=== PATIENT | female | born 1990 | race Caucasian/White ===

== ENCOUNTER → 2021-06-22 | Outpatient (CLI) | payer SELFPAY ==
--- NOTE | 2021-06-22 18:18 | Diagnostic Imaging Report ---
INDICATION: Back pain, radiculopathy. COMPARISON: None. EXAMINATION: Three views of the lumbar column. FINDINGS: Normal alignment. There is no subluxation, fracture or degeneration. No osseous lesion. IMPRESSION: Negative lumbar spine. Dictated by: Dictated on workstation # [id number]
== END ==
LOC: RAD FS 14:58
PROVIDERS: ATTEND Nurse Practitioner Family
DX: M54.16 Radiculopathy, lumbar region (principal)
CPT/HCPCS: 72100

== ENCOUNTER 2022-03-25 08:40 | Emergency (ER) | payer OTHER ==
[~2022-03-25] VITALS: Ht 170 cm; Wt 76.0 kg
--- NOTE | 2022-03-25 08:45 | ED General ---
General Stated Complaint: WEAKNESS; VOMITING History of Present Illness Date Seen by Provider: Mar 25, 2022 Time Seen by Provider: 08:45 Initial Comments 32-year-old female is here with complaints of chills, nausea and vomiting, and malaise which has been slowly increasing in intensity over the past 6 days or so. Patient denies any known contact with COVID, chest pain, shortness of breath, diarrhea, headache. Patient is unsure if she has dysuria but feels like she may have some burning when she urinates occasionally. Allergies and Home Medications Allergies Coded Allergies: No Known Drug Allergies (Unverified , 03/25/22) Patient Home Medication List Home Medication List Reviewed: Yes Review of Systems Review of Systems Constitutional: chills, malaise EENTM: no symptoms reported Respiratory: no symptoms reported Cardiovascular: no symptoms reported Gastrointestinal: loss of appetite, nausea, vomiting Genitourinary: dysuria Musculoskeletal: no symptoms reported Skin: no symptoms reported Psychiatric/Neurological: No Symptoms Reported Hematologic/Lymphatic: No Symptoms Reported Physical Exam Vital Signs Vital Signs - First Documented 03/25/22 09:43 Temp 36.8 Pulse 93 Resp 16 B/P (MAP) 136/76 (96) Pulse Ox 99 O2 Delivery Room Air Capillary Refill : Height, Weight, BMI Height: '" Weight: lbs. oz. kg; BMI Method: General Appearance: No Apparent Distress, Anxious HEENT: PERRL/EOMI Neck: Full Range of Motion, Normal Inspection, Non Tender, Supple Respiratory: Chest Non Tender, Lungs Clear, Normal Breath Sounds, No Accessory Muscle Use Cardiovascular: Regular Rate, Rhythm Gastrointestinal: Normal Bowel Sounds, Non Tender, Soft Back: Normal Inspection, No CVA Tenderness, No Vertebral Tenderness Neurologic/Psychiatric: Alert, Oriented x3, No Motor/Sensory Deficits Skin: Normal Color Focused Exam Lactate Level 03/25/22 09:59: Lactic Acid Level 1.02 Lactic Acid Level Laboratory Tests Test 03/25/22 09:59 Lactic Acid Level 1.02 MMOL/L (0.50-2.00) Progress/Results/Core Measures Suspected Sepsis SIRS Temperature: Pulse: Respiratory Rate: Laboratory Tests 03/25/22 08:58: White Blood Count 6.2 Blood Pressure / Mean: 03/25/22 09:59: Lactic Acid Level 1.02 Laboratory Tests 03/25/22 08:58: Creatinine 0.71, Platelet Count 208, Total Bilirubin 0.6 Results/Orders Lab Results Laboratory Tests Test 03/25/22 08:58 03/25/22 09:59 03/25/22 10:02 03/25/22 10:45 Range/Units White Blood Count 6.2 4.3-11.0 10^3/uL Red Blood Count 4.30 3.80-5.11 10^6/uL Hemoglobin 13.9 11.5-16.0 g/dL Hematocrit 40 35-52 % Mean Corpuscular Volume 94 80-99 fL Mean Corpuscular Hemoglobin 32 25-34 pg Mean Corpuscular Hemoglobin Concent 35 32-36 g/dL Red Cell Distribution Width 13.0 10.0-14.5 % Platelet Count 208 130-400 10^3/uL Mean Platelet Volume 10.3 9.0-12.2 fL Immature Granulocyte % (Auto) 0 % Neutrophils (%) (Auto) 65 42-75 % Lymphocytes (%) (Auto) 25 12-44 % Monocytes (%) (Auto) 8 0-12 % Eosinophils (%) (Auto) 1 0-10 % Basophils (%) (Auto) 1 0-10 % Neutrophils # (Auto) 4.1 1.8-7.8 10^3/uL Lymphocytes # (Auto) 1.6 1.0-4.0 10^3/uL Monocytes # (Auto) 0.5 0.0-1.0 10^3/uL Eosinophils # (Auto) 0.1 0.0-0.3 10^3/uL Basophils # (Auto) 0.1 0.0-0.1 10^3/uL Immature Granulocyte # (Auto) 0.0 0.0-0.1 10^3/uL Sodium Level 140 135-145 MMOL/L Potassium Level 3.1 L 3.6-5.0 MMOL/L Chloride Level 104 98-107 MMOL/L Carbon Dioxide Level 26 21-32 MMOL/L Anion Gap 10 5-14 MMOL/L Blood Urea Nitrogen 10 7-18 MG/DL Creatinine 0.71 0.60-1.30 MG/DL Estimat Glomerular Filtration Rate 115 BUN/Creatinine Ratio 14 Glucose Level 125 H 70-105 MG/DL Calcium Level 9.3 8.5-10.1 MG/DL Corrected Calcium 9.0 8.5-10.1 MG/DL Magnesium Level 1.6 1.6-2.4 MG/DL Total Bilirubin 0.6 0.1-1.0 MG/DL Aspartate Amino Transf (AST/SGOT) 21 5-34 U/L Alanine Aminotransferase (ALT/SGPT) 17 0-55 U/L Alkaline Phosphatase 81 40-136 U/L Total Protein 7.4 6.4-8.2 GM/DL Albumin 4.4 3.2-4.5 GM/DL Lipase 24 8-78 U/L Serum Alcohol < 10 <10 MG/DL Lactic Acid Level 1.02 0.50-2.00 MMOL/L Influenza Type A (RT-PCR) Not Detected Not Detecte Influenza Type B (RT-PCR) Not Detected Not Detecte SARS-CoV-2 RNA (RT-PCR) Not Detected Not Detecte Urine Color RED H Urine Clarity CLOUDY Urine pH 6.0 5-9 Urine Specific Bee >=1.030 1.016-1.022 Urine Protein 2+ H NEGATIVE Urine Glucose (UA) NEGATIVE NEGATIVE Urine Ketones TRACE H NEGATIVE Urine Nitrite POSITIVE H NEGATIVE Urine Bilirubin NEGATIVE NEGATIVE Urine Urobilinogen 1.0 < = 1.0 MG/DL Urine Leukocyte Esterase NEGATIVE NEGATIVE Urine RBC (Auto) 3+ H NEGATIVE Urine RBC >100 H /HPF Urine WBC 5-10 H /HPF Urine Squamous Epithelial Cells 2-5 /HPF Urine Crystals NONE /LPF Urine Bacteria FEW H /HPF Urine Casts NONE /LPF Urine Mucus SMALL H /LPF Urine Culture Indicated YES Urine Test NEGATIVE NEGATIVE Urine Opiates Screen NEGATIVE NEGATIVE Urine Oxycodone Screen NEGATIVE NEGATIVE Urine Methadone Screen NEGATIVE NEGATIVE Urine Propoxyphene Screen NEGATIVE NEGATIVE Urine Barbiturates Screen NEGATIVE NEGATIVE Ur Tricyclic Antidepressants Screen NEGATIVE NEGATIVE Urine Phencyclidine Screen NEGATIVE NEGATIVE Urine Amphetamines Screen NEGATIVE NEGATIVE Urine Methamphetamines Screen NEGATIVE NEGATIVE Urine Benzodiazepines Screen POSITIVE H NEGATIVE Urine Cocaine Screen NEGATIVE NEGATIVE Urine Cannabinoids Screen POSITIVE H NEGATIVE My Orders Orders - LUIZA MOHAN MD Alcohol (03/25/22 09:41) Cbc With Automated Diff (03/25/22 09:41) Comprehensive Metabolic Panel (03/25/22 09:41) Drug Screen Stat (Urine) (03/25/22 09:41) Hcg,Qualitative Urine (03/25/22 09:41) Lactic Acid Analyzer (03/25/22 09:41) Lipase (03/25/22 09:41) Magnesium (03/25/22 09:41) Ua Culture If Indicated (03/25/22 09:41) Chest 1 View Ap/Pa Only (03/25/22 09:41) Ct Abdomen/Pelvis Wo (03/25/22 09:41) Ondansetron Injection (Zofran Injectio (03/25/22 09:45) Ed Iv/Invasive Line Start (03/25/22 09:42) Ns Iv 1000 Ml (Sodium Chloride 0.9%) (03/25/22 09:45) Covid 19 Inhouse Test (03/25/22 09:46) Influenza A And B By Pcr (03/25/22 09:46) Potassium Chloride (Tablet) (K Dur Table (03/25/22 10:30) Urine Culture (03/25/22 10:45) Medications Given in ED Current Medications Medications Dose Ordered Sig/Leah Route Start Time Stop Time Status Last Admin Dose Admin Ondansetron HCl 4 mg ONCE ONCE IVP 03/25/22 09:45 03/25/22 09:46 DC 03/25/22 09:59 4 MG Potassium Chloride 40 meq ONCE ONCE PO 03/25/22 10:30 03/25/22 10:31 DC 03/25/22 10:46 40 MEQ Vital Signs/I&O 03/25/22 09:43 Temp 36.8 Pulse 93 Resp 16 B/P (MAP) 136/76 (96) Pulse Ox 99 O2 Delivery Room Air Capillary Refill : Progress Note : Progress Note 1. UTI: - CT ABD unremarkable - CXR normal - COVID test negative - UA is positive for nitrates, WBC, RBC, bacteria -Normal saline IVF bolus stat -Zofran IV stat - Nitrofurantoin 100 mg stat in ER and prescription for 7 days twice daily. Adv ised to keep adequately hydrated. 2. DEHYDRATION / HYPOKALEMIA/ MARIJUANA ABUSE: - s. K is 3.1, repleted with oral potassium 40mEq in ER. Prescription of oral potassium for 2 days. - Zofran prescription - Advised to stop using marijuana as that can trigger nausea and vomiting and dehydration a well - Follow up with PCP for repeat labs in 3 to 5 days -The patient was seen in the ED, and treated appropriately to presentation at a specific point in time. Patient is informed that there is a possibility that disease and illness can evolve and change in acuity rapidly or slowly after patient is discharged from the ER. Precautionary advice given to the patient for immediate return to ER if symptoms worsen or do not resolve, and to seek emerge ncy care sooner rather than later. Pt also advised on the importance of PCP follow up and compliance with management and follow up plan with PCP and/or specialist, as this is part of the management plan. Pt verbally expressed understanding. Diagnostic Imaging Diagonstic Imaging: Xray, CT Plain Films/CT/US/NM/MRI: chest, abdomen Comments [facility], [place] NAME: SHAWN GONZALEZ [facility] REC#: [id number] PT STATUS: REG ER : 1990 PHYSICIAN: LUIZA MOHAN MD ADMIT DATE: 03/25/22/ER FS Signed Date of Exam:03/25/22 CHEST 1 VIEW AP/PA ONLY INDICATION: Shortness of breath COMPARISON: None available TECHNIQUE: Single radiograph of the chest dated 03/25/2022. FINDINGS: The cardiac silhouette is within normal limits in size. No significant pulmonary vascular congestion. The lungs are clear without focal pulmonary opacity. No pleural effusion. No pneumothorax. No acute osseous abnormality. IMPRESSION: No acute cardiopulmonary abnormality. Dictated by: Dictated on workstation # [id number] Dict: 03/25/22 1009 Trans: 03/25/22 1036 CV [id number] Interpreted by: DAISHA MCGARRY MD Electronically signed by: DAISHA MCGARRY MD 03/25/22 1036 [facility], [place] NAME: SHAWN GONZALEZ [facility] REC#: [id number] PT STATUS: REG ER : 1990 PHYSICIAN: LUIZA MOHAN MD ADMIT DATE: 03/25/22/ER FS Draft Date of Exam:03/25/22 CT ABDOMEN/PELVIS WO PROCEDURE: CT abdomen and pelvis without contrast. TECHNIQUE: Multiple contiguous axial images were obtained through the abdomen and pelvis without the use of intravenous contrast. Auto Exposure Controls were utilized during the CT exam to meet ALARA standards for radiation dose reduction. INDICATION: Nausea and vomiting. No prior studies are available for comparison. FINDINGS: The lung bases are clear. The liver and gallbladder are unremarkable. No biliary ductal dilatation is seen. Pancreas and spleen are unremarkable. No adrenal mass is detected. No definite renal calculi are identified. No ureteral calculi or hydronephrosis is seen. Aorta is nonaneurysmal. The small and large bowel loops are normal caliber. No obstruction is identified. No inflammatory changes are seen. There is no free fluid or fluid collection. The uterus and bladder are unremarkable. IMPRESSION: Unremarkable noncontrast CT of the abdomen and pelvis. No acute feature is detected. Dictated on workstation # [id number] Dict: 03/25/22 1136 Trans: 03/25/22 1145 [id number] Interpreted by: JERARDO CHÁVEZ MD Electronically signed by: Departure Impression Primary Impression: Acute cystitis with hematuria Additional Impressions: Dehydration Hypokalemia Disposition: HOME, SELF-CARE Condition: Improved Departure-Patient Inst. Referrals: ROSALVA CASEY APRN (PCP) Primary Care Physician [facility] (Family) Primary Care Physician Patient Instructions: Urinary Tract Infections in Adults, Dehydration, Adult ED, Hypokalemia (DC) Add. Discharge Instructions: - Nitrofurantoin 100 mg stat in ER and prescription for 7 days twice daily. Advised to keep adequately hydrated. - Prescription of oral potassium for 2 days. - Zofran prescription - Advised to stop using marijuana as that can trigger nausea and vomiting and dehydration a well - Follow up with PCP for repeat labs in 3 to 5 days Scripts Nitrofurantoin Macrocrystal (Nitrofurantoin) 100 Mg Capsule 100 MG PO BID for 7 Days, #14 CAP Prov: LUIZA MOHAN MD 03/25/22 Work/School Note: Work Release Form Date Seen in the Emergency Department: Mar 25, 2022 Return to Work: Mar 27, 2022 LUIZA MOHAN MD Mar 25, 2022 08:45
[2022-03-25 09:43] VITALS: BP 136/76
[2022-03-25] MEDS ORDERED: NS IV 1000 ML 1,000 ML IV SCH (09:45)
[2022-03-25] MEDS ORDERED: ONDANSETRON 4 MG/2 ML (SDV) Z0FRAN IVP ONE (09:45)
[2022-03-25 09:47] LABS: BASOPHILS # (AUTO) 0.1 10^3/uL (0.0-0.1); BASOPHILS % (AUTO) 1 % (0-10); EOSINOPHILS # (AUTO) 0.1 10^3/uL (0.0-0.3); EOSINOPHILS % (AUTO) 1 % (0-10); HEMATOCRIT 40 % (35-52); HEMOGLOBIN 13.9 g/dL (11.5-16.0); LYMPHOCYTES # (AUTO) 1.6 10^3/uL (1.0-4.0); LYMPHOCYTES % (AUTO) 25 % (12-44); MEAN CORPUSCULAR HEMOGLOBIN 32 pg (25-34); MEAN CORPUSCULAR HGB CONC 35 g/dL (32-36); MEAN CORPUSCULAR VOLUME 94 fL (80-99); MEAN PLATELET VOLUME 10.3 fL (9.0-12.2); MONOCYTES # (AUTO) 0.5 10^3/uL (0.0-1.0); MONOCYTES % (AUTO) 8 % (0-12); NEUTROPHILS # (AUTO) 4.1 10^3/uL (1.8-7.8); NEUTROPHILS % (AUTO) 65 % (42-75); PLATELET COUNT 208 10^3/uL (130-400); WHITE BLOOD COUNT 6.2 10^3/uL (4.3-11.0)
[2022-03-25 10:11] LABS: ALANINE AMINOTRANSFERASE 17 U/L (0-55); ALKALINE PHOSPHATASE 81 U/L (40-136); BILIRUBIN,TOTAL 0.6 MG/DL (0.1-1.0); BUN/CREATININE RATIO 14; CALCIUM 9.3 MG/DL (8.5-10.1); CARBON DIOXIDE 26 MMOL/L (21-32); CHLORIDE 104 MMOL/L (98-107); CREATININE SERUM 0.71 MG/DL (0.60-1.30); GFR ESTIMATED 115; GLUCOSE 125 MG/DL (70-105); MAGNESIUM 1.6 MG/DL (1.6-2.4); POTASSIUM 3.1 MMOL/L (3.6-5.0); SODIUM 140 MMOL/L (135-145)
--- NOTE | 2022-03-25 10:11 | Diagnostic Imaging Report ---
INDICATION: Shortness of breath COMPARISON: None available TECHNIQUE: Single radiograph of the chest dated 03/25/2022. FINDINGS: The cardiac silhouette is within normal limits in size. No significant pulmonary vascular congestion. The lungs are clear without focal pulmonary opacity. No pleural effusion. No pneumothorax. No acute osseous abnormality. IMPRESSION: No acute cardiopulmonary abnormality. Dictated by: Dictated on workstation # [id number]
[2022-03-25 10:12] LABS: ALBUMIN 4.4 GM/DL (3.2-4.5); LIPASE 24 U/L (8-78); TOTAL PROTEIN 7.4 GM/DL (6.4-8.2)
[2022-03-25] MEDS ORDERED: KCL 20 MEQ TAB (K-DUR) PO ONE (10:30)
[2022-03-25 10:52] LABS: BILIRUBIN,URINE NEGATIVE (NEGATIVE); COLOR,URINE RED; GLUCOSE, URINE (UA) NEGATIVE (NEGATIVE); KETONES,URINE TRACE (NEGATIVE); LEUKOCYTE ESTERASE ,URINE NEGATIVE (NEGATIVE); NITRITE,URINE POSITIVE (NEGATIVE); PROTEIN,URINE 2+ (NEGATIVE)
[2022-03-25 11:04] LABS: BACTERIA,URINE FEW /HPF; CLARITY,URINE CLOUDY; RBC,URINE >100 /HPF
[2022-03-25 11:08] LABS: HCG,QUALITATIVE URINE NEGATIVE (NEGATIVE)
[2022-03-25 11:30] LABS: AMPHETAMINE SCREEN, URINE NEGATIVE (NEGATIVE); BARBITURATE SCREEN URINE NEGATIVE (NEGATIVE); BENZODIAZEPINES SCREEN URINE POSITIVE (NEGATIVE); CANNABINOID SCREEN, URINE POSITIVE (NEGATIVE); COCAINE SCREEN URINE NEGATIVE (NEGATIVE); METHADONE STAT NEGATIVE (NEGATIVE); OPIATE SCREEN URINE NEGATIVE (NEGATIVE); OXYCODONE STAT NEGATIVE (NEGATIVE); PROPOXYPHENE STAT NEGATIVE (NEGATIVE); TRICYCLIC ANTIDEPRESSANTS SCRE NEGATIVE (NEGATIVE)
--- NOTE | 2022-03-25 11:45 | Diagnostic Imaging Report ---
PROCEDURE: CT abdomen and pelvis without contrast. TECHNIQUE: Multiple contiguous axial images were obtained through the abdomen and pelvis without the use of intravenous contrast. Auto Exposure Controls were utilized during the CT exam to meet ALARA standards for radiation dose reduction. INDICATION: Nausea and vomiting. No prior studies are available for comparison. FINDINGS: The lung bases are clear. The liver and gallbladder are unremarkable. No biliary ductal dilatation is seen. Pancreas and spleen are unremarkable. No adrenal mass is detected. No definite renal calculi are identified. No ureteral calculi or hydronephrosis is seen. Aorta is nonaneurysmal. The small and large bowel loops are normal caliber. No obstruction is identified. No inflammatory changes are seen. There is no free fluid or fluid collection. The uterus and bladder are unremarkable. IMPRESSION: Unremarkable noncontrast CT of the abdomen and pelvis. No acute feature is detected. Dictated by: Dictated on workstation # [id number]
[2022-03-25] MEDS ORDERED: NITR100C PO (12:55)
[2022-03-25] MEDS ORDERED: NITROFURANTOIN 100 MG (MACROBID) CAPSULE PO ONE (13:00)
== END 2022-03-25 13:00 | disposition home or self-care (01) ==
LOC: EDUNIT# 08:40 → ER FS 08:42
DX: N30.01 Acute cystitis with hematuria (principal); E86.0 Dehydration; E87.6 Hypokalemia; Z20.822 Contact with and (suspected) exposure to COVID-19
CPT/HCPCS: 36415; 71045; 74176; 80053; 80306; 81000; 83605; 83690; 83735; 84703; 85025; 87088; 87636; G0480; 80320

== ENCOUNTER 2023-05-21 12:52 | Emergency (ER) | payer OTHER ==
[~2023-05-21] VITALS: Ht 162 cm; Wt 83.0 kg
[~2023-05-21 12:52] MED LIST: NITR100C PO
--- NOTE | 2023-05-21 13:10 | ED Psychosocial ---
General Stated Complaint: PSYCH EVAL Source: patient History of Present Illness Date Seen by Provider: May 21, 2023 Time Seen by Provider: 12:56 Initial Comments 33-year-old female presenting from [facility] with complaints of having thoughts of harming herself or killing herself. She states that she has had an increase in these thoughts in the last month. 2 to 3 days ago she has not used a sawblade to try and cut on her left arm. She has a superficial abrasion on the arm now. She states that she does use marijuana regularly. She reports having a history of problems with alcohol but does not use alcohol very much now. She reports within the last week she had used methamphetamines. She also states that this is a rare event and that she does not use methamphetamines all the time. She is taking Prozac and clonazepam. She has not had a counselor or therapist that she speaks with for over a year. She last had seen someone through the [facility] clinic. She expresses concern for her safety and desire for inpatient placement. Severity: moderate Associated Symptoms: suicidal ideation Allergies and Home Medications Allergies Coded Allergies: No Known Drug Allergies (Unverified , 03/25/22) Patient Home Medication List Home Medication List Reviewed: Yes Clonazepam (Clonazepam) 1 Mg Tablet, (Reported) Entered as Reported by: JAMIE JOY on 05/21/231312 Last Action: New Order Fluoxetine HCl (Fluoxetine HCl) 40 Mg Capsule, (Reported) Entered as Reported by: JAMIE JOY on 05/21/231312 Last Action: New Order Discontinued Medications Nitrofurantoin Macrocrystal (Nitrofurantoin) 100 Mg Capsule, 100 MG PO BID Discontinued Reason: No Longer Taking Prescribed by: LUIZA MOHAN MD on 03/25/22 1255 Last Action: Discontinued Review of Systems Constitutional: No chills, No fever EENTM: no symptoms reported Respiratory: no symptoms reported Cardiovascular: no symptoms reported Gastrointestinal: no symptoms reported Genitourinary: no symptoms reported Musculoskeletal: no symptoms reported Skin: see HPI (superficial abrasion to left forearm) Psychiatric/Neurological: See HPI, Depressed, Emotional Problems Past Buqpfwu-Uqvucg-Izjcon Hx Patient Social History Substance use?: Yes Substance type: Methamphetamine, Marijuana Alcohol Use?: Yes Alcohol Frequency: Once in a while Past Medical History Surgery/Hospitalization HX: Depression, Anxiety Physical Exam Vital Signs - First Documented 05/21/23 12:55 Temp 36.4 Pulse 101 Resp 16 B/P (MAP) 124/90 (101) Pulse Ox 100 O2 Delivery Room Air Capillary Refill : Height, Weight, BMI Height: '" Weight: lbs. oz. kg; 26.00 BMI Method: General Appearance: WD/WN, no apparent distress HEENT: PERRL/EOMI, pharynx normal Neck: non-tender, full range of motion, supple, normal inspection Respiratory: chest non-tender, lungs clear, normal breath sounds, no respiratory distress, no accessory muscle use Cardiovascular: normal peripheral pulses, regular rate, rhythm Gastrointestinal: normal bowel sounds, non tender, soft, no pulsatile mass Extremities: normal range of motion, non-tender, normal capillary refill Neurologic/Psychiatric: alert, oriented x 3 Appearance/Memory: appropriate appearance, neat Behavior/Eye Contact: cooperative, avoids eye contact, increased rate of speech Thoughts/Hallucinations: no apparent hallucination Skin: normal color, warm/dry, other (superficial abrasion to left forearm) BARS Assessment: 4-Calm/No Agitation Progress/Results/Core Measures Results/Orders Lab Results Laboratory Tests Test 05/21/23 13:07 05/21/23 14:20 Range/Units White Blood Count 8.6 4.3-11.0 10^3/uL Red Blood Count 4.51 3.80-5.11 10^6/uL Hemoglobin 14.1 11.5-16.0 g/dL Hematocrit 41 35-52 % Mean Corpuscular Volume 91 80-99 fL Mean Corpuscular Hemoglobin 31 25-34 pg Mean Corpuscular Hemoglobin Concent 34 32-36 g/dL Red Cell Distribution Width 12.2 10.0-14.5 % Platelet Count 243 130-400 10^3/uL Mean Platelet Volume 10.1 9.0-12.2 fL Immature Granulocyte % (Auto) 0 % Neutrophils (%) (Auto) 67 42-75 % Lymphocytes (%) (Auto) 25 12-44 % Monocytes (%) (Auto) 6 0-12 % Eosinophils (%) (Auto) 1 0-10 % Basophils (%) (Auto) 1 0-10 % Neutrophils # (Auto) 5.8 1.8-7.8 10^3/uL Lymphocytes # (Auto) 2.2 1.0-4.0 10^3/uL Monocytes # (Auto) 0.5 0.0-1.0 10^3/uL Eosinophils # (Auto) 0.1 0.0-0.3 10^3/uL Basophils # (Auto) 0.1 0.0-0.1 10^3/uL Immature Granulocyte # (Auto) 0.0 0.0-0.1 10^3/uL Sodium Level 136 135-145 MMOL/L Potassium Level 3.9 3.6-5.0 MMOL/L Chloride Level 103 98-107 MMOL/L Carbon Dioxide Level 18 L 21-32 MMOL/L Anion Gap 15 H 5-14 MMOL/L Blood Urea Nitrogen 16 7-18 MG/DL Creatinine 0.80 0.60-1.30 MG/DL Estimat Glomerular Filtration Rate 99 BUN/Creatinine Ratio 20 Glucose Level 101 70-105 MG/DL Calcium Level 9.4 8.5-10.1 MG/DL Corrected Calcium 9.3 8.5-10.1 MG/DL Total Bilirubin 1.3 H 0.1-1.0 MG/DL Aspartate Amino Transf (AST/SGOT) 27 5-34 U/L Alanine Aminotransferase (ALT/SGPT) 24 0-55 U/L Alkaline Phosphatase 92 40-136 U/L Total Protein 7.7 6.4-8.2 GM/DL Albumin 4.1 3.2-4.5 GM/DL Salicylates Level < 0.3 L 5.0-20.0 MG/DL Acetaminophen Level < 10 L 10-30 UG/ML Serum Alcohol 16 H <10 MG/DL SARS-CoV-2 RNA (RT-PCR) Not Detected Not Detecte Urine Color ORANGE Urine Clarity CLEAR Urine pH 5.5 5-9 Urine Specific [place] >=1.030 1.016-1.022 Urine Protein TRACE H NEGATIVE Urine Glucose (UA) NEGATIVE NEGATIVE Urine Ketones 1+ H NEGATIVE Urine Nitrite NEGATIVE NEGATIVE Urine Bilirubin 2+ H NEGATIVE Urine Urobilinogen 4.0 < = 1.0 MG/DL Urine Leukocyte Esterase NEGATIVE NEGATIVE Urine RBC (Auto) NEGATIVE NEGATIVE Urine RBC RARE /HPF Urine WBC 0-2 /HPF Urine Squamous Epithelial Cells 2-5 /HPF Urine Crystals NONE /LPF Urine Bacteria FEW H /HPF Urine Casts NONE /LPF Urine Mucus MODERATE H /LPF Urine Culture Indicated NO Urine Opiates Screen NEGATIVE NEGATIVE Urine Oxycodone Screen NEGATIVE NEGATIVE Urine Methadone Screen NEGATIVE NEGATIVE Urine Propoxyphene Screen NEGATIVE NEGATIVE Urine Barbiturates Screen NEGATIVE NEGATIVE Ur Tricyclic Antidepressants Screen NEGATIVE NEGATIVE Urine Phencyclidine Screen NEGATIVE NEGATIVE Urine Amphetamines Screen POSITIVE H NEGATIVE Urine Methamphetamines Screen POSITIVE H NEGATIVE Urine Benzodiazepines Screen POSITIVE H NEGATIVE Urine Cocaine Screen NEGATIVE NEGATIVE Urine Cannabinoids Screen POSITIVE H NEGATIVE My Orders Orders - JOHN MENDOZA MD Ua Culture If Indicated (05/21/23 12:54) Cbc With Automated Diff (05/21/23 12:54) Comprehensive Metabolic Panel (05/21/23 12:54) Alcohol (05/21/23 12:54) Drug Screen Stat (Urine) (05/21/23 12:54) Acetaminophen (05/21/23 12:54) Salicylate (05/21/23 12:54) Ekg Tracing (05/21/23 12:54) Bh Status Checks/Observation O Q15M (05/21/23 12:54) Urine Bedside (05/21/23 12:54) Covid 19 Inhouse Test (05/21/23 12:54) Straight Cath For Spec.-Adult (05/21/23 14:18) Vital Signs/I&O 05/21/23 05/21/23 12:55 15:15 Temp 36.4 36.4 Pulse 101 101 Resp 16 16 B/P (MAP) 124/90 (101) 124/90 Pulse Ox 100 100 O2 Delivery Room Air Room Air Progress Progress Note #1: Progress Note Differential diagnosis includes depression, anxiety, suicidal ideation, substance abuse. Obtain labs for complete blood count, comprehensive metabolic profile, acetaminophen, salicylate, alcohol level. Urinalysis and urine drug screen. Bedside urine test. COVID swab. Electrocardiogram to look for QT prolongation in case she requires medication. Patient placed in secure environment under observation awaiting lab results to medically clear her so that mental health could perform a screening. Progress Note #2: Time: 13:41 Progress Note Complete blood count shows normal white blood cell count of 8.6 and hemoglobin of 14.1. Comprehensive metabolic profile did not show any acute significant electrolyte abnormalities. Aspirin and acetaminophen levels are both negative. Alcohol level was 16. COVID swab was negative. Patient is still trying to provide a urine specimen. Overall she is medically stable and clear in my opinion she could be screened by mental health. 1350 [facility] called back to say that they would not screen the patient for mental health until she has urine tests back. Patient has tried multiple times but still not been able to produce any urine. Having her continue to drink water to try and help her be able to urinate. 1411 Patient still unable to urinate so offered to have the nurse do a straight cath to get enough urine for testing. 1420 Urine obtained by straight cath was dark and appeared concentrated so will have her drink more water and try to stay better hydrated. Urine test is negative. Progress Note #3: Time: 14:37 Progress Note Urine drug screen came back positive for marijuana that she admits to using as well as benzodiazepines which she is prescribed. In addition amphetamines and methamphetamines did show positive on the drug screen. 1448 UA shows concentration with specific gravity >1.030. She has 1 + Ketones and 2 + Bilirubin to go with dehydration as well. No LE or Nitrites or WBC to indicate infection. Will check again with [facility] to see if they will screen the patient now. Progress Note #4: Time: 15:05 Progress Note I spoke with Kurt at [facility] and she advised that with the patient having Methamphetamines in her system the patient will have to wait 12 hours before they will screen her. This is based off of the time that she contacted them at 1237 this afternoon. I reviewed with the patient that it would be almost 1 AM before they could screen her. She was advised that we would make her comfortable moderate try and rest here and plan on doing the screening in the middle of the night. However the patient is here voluntarily and she stated that she felt more calm now. She did not want to stay till 1 AM and wanted instead to go home with her mother. She will be given information for [facility] and phone number to call if she had a crisis or suicidal thoughts before she could be reevaluated. She plans to follow-up with [facility] for outpatient visits. Stressed importance of returning if she has increasing suicidal thoughts. Initial ECG Impression Date: May 21, 2023 Initial ECG Impression Time: 13:11 Initial ECG Rate: 68 Initial ECG Rhythm: Normal Sinus Initial ECG Comparisson: No Previous ECG Available Comment My personal interpretation and review her electrocardiogram shows a normal sinus rhythm with a heart rate of 68 bpm. OK interval [address] elevation. QT interval 434 ms with a QTc interval 452 ms. There is no prior tracing available for comparison. Departure Impression Primary Impression: Depression with suicidal ideation Additional Impression: Abrasion of left forearm, initial encounter Disposition: HOME, SELF-CARE Condition: Stable Departure-Patient Inst. Decision time for Depature: 15:08 Referrals: ROSALVA CASEY APRN (PCP) Primary Care Physician [facility]/ANGELO (Family) Primary Care Physician Patient Instructions: Depression, Adult ED, Abrasions ED, Tips for How to Help Your Mood, Tips on Positive Thinking, Suicide Prevention Add. Discharge Instructions: [place] [facility] [phone] if you are having suicidal thoughts or feel that you need to speak to a mental health provider. Avoid using drugs or alcohol. Establish for mental health care with [facility] or [facility]. JOHN MENDOZA MD May 21, 2023 13:10
[2023-05-21] MEDS ORDERED: FLUO40CA (13:13)
[2023-05-21] MEDS ORDERED: CLON1TAB13 (13:13)
[2023-05-21 13:18] LABS: BASOPHILS # (AUTO) 0.1 10^3/uL (0.0-0.1); BASOPHILS % (AUTO) 1 % (0-10); EOSINOPHILS # (AUTO) 0.1 10^3/uL (0.0-0.3); EOSINOPHILS % (AUTO) 1 % (0-10); HEMATOCRIT 41 % (35-52); HEMOGLOBIN 14.1 g/dL (11.5-16.0); LYMPHOCYTES # (AUTO) 2.2 10^3/uL (1.0-4.0); LYMPHOCYTES % (AUTO) 25 % (12-44); MEAN CORPUSCULAR HEMOGLOBIN 31 pg (25-34); MEAN CORPUSCULAR HGB CONC 34 g/dL (32-36); MEAN CORPUSCULAR VOLUME 91 fL (80-99); MEAN PLATELET VOLUME 10.1 fL (9.0-12.2); MONOCYTES # (AUTO) 0.5 10^3/uL (0.0-1.0); MONOCYTES % (AUTO) 6 % (0-12); NEUTROPHILS # (AUTO) 5.8 10^3/uL (1.8-7.8); NEUTROPHILS % (AUTO) 67 % (42-75); PLATELET COUNT 243 10^3/uL (130-400); WHITE BLOOD COUNT 8.6 10^3/uL (4.3-11.0)
[2023-05-21 13:38] LABS: BUN/CREATININE RATIO 20; CARBON DIOXIDE 18 MMOL/L (21-32); CHLORIDE 103 MMOL/L (98-107); GFR ESTIMATED 99; POTASSIUM 3.9 MMOL/L (3.6-5.0); SODIUM 136 MMOL/L (135-145)
[2023-05-21 13:39] LABS: ACETAMINOPHEN < 10 UG/ML (10-30); ALANINE AMINOTRANSFERASE 24 U/L (0-55); ALBUMIN 4.1 GM/DL (3.2-4.5); ALKALINE PHOSPHATASE 92 U/L (40-136); BILIRUBIN,TOTAL 1.3 MG/DL (0.1-1.0); CALCIUM 9.4 MG/DL (8.5-10.1); GLUCOSE 101 MG/DL (70-105); SALICYLATE < 0.3 MG/DL (5.0-20.0); TOTAL PROTEIN 7.7 GM/DL (6.4-8.2)
[2023-05-21 14:35] LABS: AMPHETAMINE SCREEN, URINE POSITIVE (NEGATIVE); BARBITURATE SCREEN URINE NEGATIVE (NEGATIVE); BENZODIAZEPINES SCREEN URINE POSITIVE (NEGATIVE); CANNABINOID SCREEN, URINE POSITIVE (NEGATIVE); COCAINE SCREEN URINE NEGATIVE (NEGATIVE); METHADONE STAT NEGATIVE (NEGATIVE); OPIATE SCREEN URINE NEGATIVE (NEGATIVE); OXYCODONE STAT NEGATIVE (NEGATIVE); PROPOXYPHENE STAT NEGATIVE (NEGATIVE); TRICYCLIC ANTIDEPRESSANTS SCRE NEGATIVE (NEGATIVE)
[2023-05-21 14:42] LABS: CLARITY,URINE CLEAR; COLOR,URINE ORANGE; GLUCOSE, URINE (UA) NEGATIVE (NEGATIVE); KETONES,URINE 1+ (NEGATIVE); LEUKOCYTE ESTERASE ,URINE NEGATIVE (NEGATIVE); NITRITE,URINE NEGATIVE (NEGATIVE); PH,URINE 5.5 (5-9); PROTEIN,URINE TRACE (NEGATIVE)
[2023-05-21 14:43] LABS: BACTERIA,URINE FEW /HPF; BILIRUBIN,URINE 2+ (NEGATIVE); RBC,URINE RARE /HPF; WBC,URINE 0-2 /HPF
[2023-05-21 15:15] VITALS: BP 124/90
== END 2023-05-21 15:15 | disposition home or self-care (01) ==
LOC: EDUNIT# 12:52 → ER FS 12:53
DX: S50.812A Abrasion of left forearm, initial encounter (principal); F32.A Depression, unspecified; Z20.822 Contact with and (suspected) exposure to COVID-19; X83.8XXA Intentional self-harm by other specified means, initial encounter
CPT/HCPCS: 36415; 51701; 80053; 80306; 81000; 84703; 85025; 87636; G0480 ×3; 80320; 80329; 93005